=== PATIENT | female | born 1935 | race Caucasian/White ===

== ENCOUNTER 2022-05-26 11:55 | Inpatient (IN) ==
[2022-05-26] MEDS ORDERED: NITROGLYCERIN SL 0.4 MG TABLET SL PRN (12:40)
[2022-05-26] MEDS ORDERED: ASPIRIN 325 MG TABLET PO STA (12:40)
[2022-05-26 13:06] LABS: Alanine Aminotransferase 13 U/L (13-56); Albumin 3.4 G/DL (3.4-5.0); Alkaline Phosphatase 97 U/L (45-117); Aspartate Amino Transferase 18 U/L (0-37); Bilirubin,Total < 0.39 MG/DL (0.20-1.00); Blood Urea Nitrogen 11 MG/DL (7-18); Carbon Dioxide 28 MMOL/L (21-32); Chloride 105 MMOL/L (98-107); Glucose 141 MG/DL (74-106); Osmolality,Calculated 275.7 MOS/KG (273-304); Potassium 3.8 MMOL/L (3.5-5.1); Sodium 138 MMOL/L (136-145); Total Protein 7.2 G/DL (6.4-8.2)
[2022-05-26 13:37] LABS: Basophils % 0.5 % (0.0-0.8); Eosinophils # 0.1 10*3/uL (0.0-0.87); Eosinophils % 1.2 % (0.00-10.9); Hematocrit 40.2 VOL% (35.7-47.0); Hemoglobin 12.8 GM/DL (12.0-16.0); Immature Granulocytes % 0.6 %; Immature Granulocytes Absolute 0.05 #; Lymphocytes # 1.1 10*3/uL (1.4-4.0); Lymphocytes % 12.9 % (21.3-54.2); Mean Corpuscular HGB Conc 31.8 GM/DL (32-36); Mean Corpuscular Volume 97.3 FL (87-102); Mean Platelet Volume 9.2 FL (9.6-12.0); Monocytes # 0.4 10*3/uL (0.11-0.8); Monocytes % 4.7 % (1.7-12.7); Neutrophils % 80.1 % (38.7-73.9); Platelet Count 285 T/CUMM (130-400); Red Blood Count 4.13 MC/CUMM (3.8-5.5); Red Cell Distribution Width 12.4 % (9.3-17.3); White Blood Count 8.7 T/CUMM (4-12)
[2022-05-26 13:45] LABS: PT Patient Result 10.6 SECS (10.1-12.1); Partial Thromboplastin Time 25.2 SECS (23.7-32.9)
[2022-05-26] MEDS ORDERED: ACETAMINOPHEN 325 MG TABLET PO PRN (14:56)
[2022-05-26] MEDS ORDERED: MORPHINE 2 MG/1 ML SYRINGE IV PRN (14:56)
[2022-05-26] MEDS ORDERED: DEXTROSE 10% 250 ML BAG IV PRN (14:56)
[2022-05-26] MEDS ORDERED: GLUCAGON 1 MG VIAL IM PRN (14:56)
[2022-05-26] MEDS: traMADol 50 MG TABLET PO PRN (15:53)
[2022-05-26] MEDS ORDERED: ENOXAPARIN 60 MG/0.6 ML SYRINGE SUBCUT ONE (20:21)
[2022-05-26] MEDS ORDERED: CLOPIDOGREL 300 MG TABLET PO ONE (20:21)
[2022-05-26] MEDS ORDERED: HEPARIN 5,000 UNIT/1 ML VIAL SUBCUT SCH (21:00)
[2022-05-26] MEDS: ROSUVASTATIN 20 MG TABLET PO SCH (21:29)
[2022-05-26] MEDS: GABAPENTIN 100 MG CAPSULE PO SCH (21:29)
[2022-05-26] MEDS: PANTOPRAZOLE 40 MG TABLET PO SCH (21:29)
[2022-05-26] MEDS: carvediloL 3.125 MG TABLET PO SCH (21:29)
[2022-05-27 05:27] LABS: Basophils % 0.4 % (0.0-0.8); Hematocrit 35.6 VOL% (35.7-47.0); Hemoglobin 11.5 GM/DL (12.0-16.0); Immature Granulocytes % 0.4 %; Immature Granulocytes Absolute 0.03 #; Lymphocytes # 1.9 10*3/uL (1.4-4.0); Lymphocytes % 26.9 % (21.3-54.2); Mean Corpuscular HGB Conc 32.3 GM/DL (32-36); Mean Corpuscular Volume 95.4 FL (87-102); Mean Platelet Volume 9.2 FL (9.6-12.0); Monocytes # 0.5 10*3/uL (0.11-0.8); Monocytes % 7.4 % (1.7-12.7); Neutrophils % 64.9 % (38.7-73.9); Platelet Count 263 T/CUMM (130-400); Red Blood Count 3.73 MC/CUMM (3.8-5.5); Red Cell Distribution Width 12.4 % (9.3-17.3)
[2022-05-27 05:56] LABS: Calcium 8.8 MG/DL (8.5-10.1); Osmolality,Calculated 272.7 MOS/KG (273-304); Potassium 3.9 MMOL/L (3.5-5.1); Risk Ratio 2.7; Thyroid Stimulating Hormone 0.95 uIU/ml (0.358-3.74); VLDL Cholesterol 12.8 MG/DL
[2022-05-27] MEDS: ASPIRIN EC 81 MG TABLET PO SCH (09:22)
[2022-05-27] MEDS: PANTOPRAZOLE 40 MG TABLET PO SCH ×2 (09:22→21:34)
[2022-05-27] MEDS: carvediloL 3.125 MG TABLET PO SCH ×2 (09:22→21:33)
[2022-05-27] MEDS: CLOPIDOGREL 75 MG TABLET PO SCH (09:22)
[2022-05-27] MEDS: ENOXAPARIN 60 MG/0.6 ML SYRINGE SUBCUT SCH ×2 (09:23→21:39)
[2022-05-27] MEDS ORDERED: TIROFIBAN 0 MCG in PREMIX 1 EACH IV ONE (09:51)
[2022-05-27] MEDS ORDERED: OXYMETAZOLINE 0.05% NASAL SPRAY 15 ML BOTTLE BOTH NARES PRN (09:57)
[2022-05-27] MEDS ORDERED: TIROFIBAN IV ONE (10:03)
[2022-05-27] MEDS: TIROFIBAN 5,000 MCG/100 ML PREMIX IV SCH ×2 (12:30→20:04)
[2022-05-27 14:40] VITALS: BP 144/71
[2022-05-27] MEDS: traMADol 50 MG TABLET PO PRN ×2 (15:25→21:36)
[2022-05-27] MEDS: CALCIUM CARBONATE CHEW 500 MG TABLET PO PRN (17:55)
[2022-05-27] MEDS: GABAPENTIN 100 MG CAPSULE PO SCH (21:34)
[2022-05-27] MEDS: ROSUVASTATIN 20 MG TABLET PO SCH (21:35)
[2022-05-27] MEDS: SODIUM CHLORIDE 0.65% NASAL SPRAY 45 ML BOTTLE BOTH NARES SCH (21:46)
[2022-05-28 05:39] LABS: Basophils % 0.6 % (0.0-0.8); Hemoglobin 12.1 GM/DL (12.0-16.0); Immature Granulocytes % 0.3 %; Immature Granulocytes Absolute 0.02 #; Lymphocytes # 1.5 10*3/uL (1.4-4.0); Lymphocytes % 24.5 % (21.3-54.2); Mean Corpuscular HGB Conc 33.6 GM/DL (32-36); Mean Corpuscular Volume 93.5 FL (87-102); Mean Platelet Volume 8.7 FL (9.6-12.0); Monocytes # 0.6 10*3/uL (0.11-0.8); Monocytes % 8.9 % (1.7-12.7); Neutrophils % 65.7 % (38.7-73.9); Platelet Count 263 T/CUMM (130-400); Red Blood Count 3.85 MC/CUMM (3.8-5.5); Red Cell Distribution Width 12.2 % (9.3-17.3); White Blood Count 6.2 T/CUMM (4-12)
[2022-05-28 05:51] LABS: Osmolality,Calculated 268.1 MOS/KG (273-304); Potassium 3.7 MMOL/L (3.5-5.1)
[2022-05-28] MEDS: TIROFIBAN 5,000 MCG/100 ML PREMIX IV SCH ×2 (07:22→17:50)
[2022-05-28] MEDS: ENOXAPARIN 60 MG/0.6 ML SYRINGE SUBCUT SCH ×2 (08:40→20:39)
[2022-05-28] MEDS: ASPIRIN EC 81 MG TABLET PO SCH (08:40)
[2022-05-28] MEDS: carvediloL 3.125 MG TABLET PO SCH ×2 (08:40→20:43)
[2022-05-28] MEDS: SODIUM CHLORIDE 0.65% NASAL SPRAY 45 ML BOTTLE BOTH NARES SCH ×2 (08:40→22:23)
[2022-05-28] MEDS: traMADol 50 MG TABLET PO PRN (08:41)
[2022-05-28] MEDS: PANTOPRAZOLE 40 MG TABLET PO SCH ×2 (08:41→20:41)
[2022-05-28] MEDS: CLOPIDOGREL 75 MG TABLET PO SCH (08:41)
[2022-05-28] MEDS: traMADol 50 MG TABLET PO SCH ×2 (14:15→20:40)
[2022-05-28] MEDS: CALCIUM CARBONATE CHEW 500 MG TABLET PO PRN (20:00)
[2022-05-28] MEDS: ROSUVASTATIN 20 MG TABLET PO SCH (20:40)
[2022-05-28] MEDS: GABAPENTIN 100 MG CAPSULE PO SCH (20:41)
[2022-05-29] MEDS ORDERED: DIAZEPAM 5 MG TABLET PO ONE (06:00)
[2022-05-29] MEDS ORDERED: SODIUM CHLORIDE 0.45% 1,000 ML IV SCH (06:00)
[2022-05-29] MEDS ORDERED: diphenhydrAMINE CAP 25 MG CAPSULE PO ONE (06:00)
[2022-05-29 06:01] LABS: Basophils % 0.6 % (0.0-0.8); Eosinophils # 0.2 10*3/uL (0.0-0.87); Eosinophils % 2.5 % (0.00-10.9); Hematocrit 38.3 VOL% (35.7-47.0); Hemoglobin 12.7 GM/DL (12.0-16.0); Immature Granulocytes % 0.3 %; Immature Granulocytes Absolute 0.02 #; Lymphocytes # 1.9 10*3/uL (1.4-4.0); Lymphocytes % 28.7 % (21.3-54.2); Mean Corpuscular HGB Conc 33.2 GM/DL (32-36); Mean Corpuscular Volume 94.8 FL (87-102); Mean Platelet Volume 8.9 FL (9.6-12.0); Monocytes # 0.9 10*3/uL (0.11-0.8); Monocytes % 13.3 % (1.7-12.7); Neutrophils % 54.6 % (38.7-73.9); Platelet Count 261 T/CUMM (130-400); Red Blood Count 4.04 MC/CUMM (3.8-5.5); Red Cell Distribution Width 12.2 % (9.3-17.3); White Blood Count 6.5 T/CUMM (4-12)
[2022-05-29] MEDS: TIROFIBAN 5,000 MCG/100 ML PREMIX IV SCH ×2 (06:01)
[2022-05-29 06:15] LABS: Calcium 9.1 MG/DL (8.5-10.1); Osmolality,Calculated 274.8 MOS/KG (273-304); Potassium 3.6 MMOL/L (3.5-5.1)
[2022-05-29] MEDS ORDERED: HYDROmorphone 1 MG/1 ML SYRINGE ONE (07:24)
[2022-05-29] MEDS ORDERED: MIDAZOLAM 2 MG/2 ML VIAL ONE (07:24)
[2022-05-29] MEDS ORDERED: ENOXAPARIN 30 MG/0.3 ML SYRINGE ONE (07:55)
[2022-05-29] MEDS ORDERED: CLOPIDOGREL 300 MG TABLET ONE (09:10)
[2022-05-29] MEDS ORDERED: ONDANSETRON 4 MG/2 ML VIAL IV PRN (09:11)
[2022-05-29] MEDS ORDERED: ZALEPLON 5 MG CAPSULE PO PRN (09:11)
[2022-05-29] MEDS: ENOXAPARIN 60 MG/0.6 ML SYRINGE SUBCUT SCH (09:58)
[2022-05-29] MEDS: PANTOPRAZOLE 40 MG TABLET PO SCH ×2 (09:58→21:44)
[2022-05-29] MEDS: SODIUM CHLORIDE 0.65% NASAL SPRAY 45 ML BOTTLE BOTH NARES SCH ×2 (10:03→21:49)
[2022-05-29] MEDS: CLOPIDOGREL 75 MG TABLET PO SCH (10:04)
[2022-05-29] MEDS: traMADol 50 MG TABLET PO SCH ×3 (10:04→21:45)
[2022-05-29] MEDS: ASPIRIN EC 81 MG TABLET PO SCH (11:33)
[2022-05-29] MEDS: carvediloL 3.125 MG TABLET PO SCH ×2 (12:05→21:44)
[2022-05-29] MEDS: CALCIUM CARBONATE CHEW 500 MG TABLET PO PRN (21:23)
[2022-05-29] MEDS: GABAPENTIN 100 MG CAPSULE PO SCH (21:44)
[2022-05-29] MEDS: ROSUVASTATIN 20 MG TABLET PO SCH (21:44)
[2022-05-30 06:02] LABS: Basophils % 0.4 % (0.0-0.8); Hemoglobin 11.7 GM/DL (12.0-16.0); Immature Granulocytes % 0.3 %; Immature Granulocytes Absolute 0.02 #; Lymphocytes # 1.6 10*3/uL (1.4-4.0); Lymphocytes % 22.7 % (21.3-54.2); Mean Corpuscular HGB Conc 32.5 GM/DL (32-36); Mean Corpuscular Volume 94.7 FL (87-102); Monocytes # 0.7 10*3/uL (0.11-0.8); Monocytes % 9.9 % (1.7-12.7); Neutrophils % 66.7 % (38.7-73.9); Platelet Count 242 T/CUMM (130-400); Red Cell Distribution Width 12.3 % (9.3-17.3); White Blood Count 7.2 T/CUMM (4-12)
[2022-05-30 06:22] LABS: Osmolality,Calculated 279.4 MOS/KG (273-304); Potassium 3.7 MMOL/L (3.5-5.1)
[2022-05-30 06:28] LABS: CKMB % 10.57 %
[2022-05-30 06:29] LABS: High Sensitive Troponin I* 5416.5 ng/L (0-54)
[2022-05-30] MEDS: ASPIRIN EC 81 MG TABLET PO SCH (09:13)
[2022-05-30] MEDS: traMADol 50 MG TABLET PO SCH ×3 (09:13→20:43)
[2022-05-30] MEDS: CLOPIDOGREL 75 MG TABLET PO SCH (09:13)
[2022-05-30] MEDS: carvediloL 3.125 MG TABLET PO SCH ×2 (09:13→20:43)
[2022-05-30] MEDS: ENOXAPARIN 40 MG/0.4 ML SYRINGE SUBCUT SCH (09:14)
[2022-05-30] MEDS: PANTOPRAZOLE 40 MG TABLET PO SCH ×2 (09:17→20:43)
[2022-05-30] MEDS: SODIUM CHLORIDE 0.65% NASAL SPRAY 45 ML BOTTLE BOTH NARES SCH ×2 (09:18→20:45)
[2022-05-30] MEDS: GABAPENTIN 100 MG CAPSULE PO SCH (20:43)
[2022-05-30] MEDS: ROSUVASTATIN 20 MG TABLET PO SCH (20:43)
[2022-05-31 06:09] LABS: Basophils % 0.4 % (0.0-0.8); Eosinophils # 0.2 10*3/uL (0.0-0.87); Hematocrit 34.1 VOL% (35.7-47.0); Hemoglobin 10.8 GM/DL (12.0-16.0); Immature Granulocytes % 0.3 %; Immature Granulocytes Absolute 0.02 #; Lymphocytes # 1.7 10*3/uL (1.4-4.0); Lymphocytes % 25.2 % (21.3-54.2); Mean Corpuscular HGB Conc 31.7 GM/DL (32-36); Mean Corpuscular Volume 97.4 FL (87-102); Mean Platelet Volume 9.3 FL (9.6-12.0); Monocytes # 0.6 10*3/uL (0.11-0.8); Monocytes % 9.5 % (1.7-12.7); Neutrophils % 61.6 % (38.7-73.9); Platelet Count 212 T/CUMM (130-400); Red Cell Distribution Width 12.3 % (9.3-17.3); White Blood Count 6.7 T/CUMM (4-12)
[2022-05-31 06:28] LABS: Calcium 8.9 MG/DL (8.5-10.1); Osmolality,Calculated 281.3 MOS/KG (273-304); Potassium 4.1 MMOL/L (3.5-5.1)
[2022-05-31] MEDS: ENOXAPARIN 40 MG/0.4 ML SYRINGE SUBCUT SCH (09:08)
[2022-05-31] MEDS: CLOPIDOGREL 75 MG TABLET PO SCH (09:08)
[2022-05-31] MEDS: carvediloL 3.125 MG TABLET PO SCH (09:08)
[2022-05-31] MEDS: ASPIRIN EC 81 MG TABLET PO SCH (09:08)
[2022-05-31] MEDS: traMADol 50 MG TABLET PO SCH (09:08)
[2022-05-31] MEDS: PANTOPRAZOLE 40 MG TABLET PO SCH (09:08)
[2022-05-31] MEDS: SODIUM CHLORIDE 0.65% NASAL SPRAY 45 ML BOTTLE BOTH NARES SCH (09:09)
== END 2022-05-31 12:35 | disposition swing bed (61) | DRG 247 ==
LOC: EDBD → EDUNIT# → N.ED 11:55 → N.EDINP 11:55 → SUATTDRO 14:56 → N.TELES 16:48 → SUATTDRO 18:15 → N.ICU 05-27 11:20
PROVIDERS: ADMIT Internal Medicine; ATTEND Internal Medicine Geriatric Medicine
PROC: CLCCHCL (ICD-10-PCS; 2022-05-29 07:45)